=== PATIENT | male | born 1980 | race African-American/Black ===

== ENCOUNTER 2018-07-02 12:11 | Emergency (ER) | payer OTHER ==
[~2018-07-02] VITALS: Ht 182.9 cm; Wt 98.4 kg
[2018-07-02 12:58] VITALS: BP 110/88
== END 2018-07-02 15:00 | disposition home or self-care (01) ==
LOC: ER 12:11
DX: M79.675 Pain in left toe(s) (principal)
CPT/HCPCS: 73630

== ENCOUNTER 2018-08-06 08:25 | Emergency (ER) | payer OTHER ==
[~2018-08-06] VITALS: Ht 185.4 cm; Wt 85.3 kg
[2018-08-06 08:40] VITALS: BP 131/74
[2018-08-06 10:00] LABS: Urine Bacteria NONE SEEN /hpf (None Seen); Urine Blood Negative /uL (Negative); Urine Mucus FEW (None Seen); Urine Specific Gravity 1.035 (1.001-1.035); Urine WBC 23 /hpf (0 - 3)
== END 2018-08-06 10:11 | disposition left against medical advice (07) ==
LOC: ER 08:25
DX: N39.0 Urinary tract infection, site not specified (principal); Z53.29 Procedure and treatment not carried out because of patient's decision for other reasons
CPT/HCPCS: 81001